=== PATIENT | male | born 1980 | race Two or more races ===

== ENCOUNTER → 2020-05-16 | Outpatient (CLI) | payer OTHER | END | disposition home or self-care (01) | LOC: CARD 09:57 | PROVIDERS: ATTEND Family Medicine | DX: M50.33 Other cervical disc degeneration, cervicothoracic region (principal); M48.061 Spinal stenosis, lumbar region without neurogenic claudication; R00.2 Palpitations | CPT/HCPCS: 72040; 93225; 93226 ==

== ENCOUNTER 2021-04-11 06:39 | Outpatient (CLI) | payer OTHER | END 2021-04-11 23:59 | disposition home or self-care (01) | LOC: CFH 06:39 | PROVIDERS: ATTEND Internal Medicine Cardiovascular Disease | DX: I37.1 Nonrheumatic pulmonary valve insufficiency (principal); R07.9 Chest pain, unspecified; I10 Essential (primary) hypertension | CPT/HCPCS: 78452; 93017; 93306; A9502 ==